=== PATIENT | male | born 1950 | race Two or more races ===

== ENCOUNTER 2020-03-28 09:42 | Outpatient (CLI) | payer MEDICARE, OTHER ==
[~2020-03-28 09:42] MED LIST: METF-440 PO; METO25TA4 PO; SIME125C81 PO
[2020-03-28 12:48] LABS: BASOPHILS # (AUTO) 0.1 /CMM (0.0-0.2); BASOPHILS % (AUTO) 1.3 % (0.0-2.0); EOSINOPHILS % (AUTO) 8.5 % (0.0-6.0); HEMATOCRIT 46 % (39-51); HEMOGLOBIN 15.4 g/dL (13.5-17.5); LYMPHOCYTES # (AUTO) 1.8 /CMM (0.8-4.8); LYMPHOCYTES % (AUTO) 21.9 % (20.0-44.0); MEAN CORPUSCULAR HGB CONC 33 g/dl (31.0-36.0); MEAN CORPUSCULAR VOLUME 92 fL (80-96); MONOCYTES # (AUTO) 0.8 /CMM (0.1-1.30); MONOCYTES % (AUTO) 9.9 % (2.0-12.0); NEUTROPHILS # (AUTO) 4.9 /CMM (1.8-8.9); NEUTROPHILS % (AUTO) 58.4 % (43.0-81.0); PLATELET COUNT (AUTO) 259 /CMM (150-450); RED BLOOD CELL COUNT(AUTO) 5.03 MIL/uL (4.5-6.0); WHITE BLOOD COUNT (AUTO) 8.4 K/uL (4.3-11.0)
[2020-03-28 13:19] LABS: ALBUMIN 3.5 g/dL (3.4-5.0); CALCIUM, SERUM 9.3 mg/dL (8.5-10.1); CREATININE 2.1 mg/dL (0.6-1.3); MAGNESIUM 2.1 mg/dL (1.8-2.4); PHOSPHORUS 3.2 mg/dL (2.5-4.9); POTASSIUM 4.5 mmol/L (3.5-5.1); TOTAL PROTEIN, SERUM 8.1 g/dL (6.4-8.2)
[2020-03-28 13:22] LABS: URIC ACID 7.4 mg/dL (2.6-7.2)
[2020-03-28 13:35] LABS: BILIRUBIN,TOTAL 0.3 mg/dL (0.2-1.0)
[2020-03-29 08:08] LABS: FOLIC ACID 12.1 ng/mL (>3.0)
== END 2020-03-28 23:59 | disposition home or self-care (01) ==
LOC: MSC 09:42
PROVIDERS: ATTEND Internal Medicine
DX: H04.203 Unspecified epiphora, bilateral (principal); E11.22 Type 2 diabetes mellitus with diabetic chronic kidney disease; I12.9 Hypertensive chronic kidney disease with stage 1 through stage 4 chronic kidney disease, or unspecified chronic kidney disease; N18.9 Chronic kidney disease, unspecified; Z79.84 Long term (current) use of oral hypoglycemic drugs; I25.10 Atherosclerotic heart disease of native coronary artery without angina pectoris; M10.9 Gout, unspecified; R05 Cough
CPT/HCPCS: 36415; 80053; 82306; 82607; 82746; 83036; 83735; 84100; 84550; 85025; 85652; 86140; G0463

== ENCOUNTER 2020-11-15 10:59 | Outpatient (CLI) | payer OTHER | END 2020-11-15 23:59 | disposition home or self-care (01) | LOC: MSC 10:59 | PROVIDERS: ATTEND Internal Medicine | DX: E11.22 Type 2 diabetes mellitus with diabetic chronic kidney disease (principal); I12.9 Hypertensive chronic kidney disease with stage 1 through stage 4 chronic kidney disease, or unspecified chronic kidney disease; N18.9 Chronic kidney disease, unspecified; Z79.4 Long term (current) use of insulin; I25.10 Atherosclerotic heart disease of native coronary artery without angina pectoris; Z98.61 Coronary angioplasty status; M10.9 Gout, unspecified; R05 Cough; Z79.82 Long term (current) use of aspirin; Z79.899 Other long term (current) drug therapy ==

== ENCOUNTER 2021-01-01 08:49 | Outpatient (CLI) | payer OTHER | END 2021-01-01 23:59 | disposition home or self-care (01) | LOC: MSC 08:49 | PROVIDERS: ATTEND Internal Medicine | DX: M25.512 Pain in left shoulder (principal); E11.22 Type 2 diabetes mellitus with diabetic chronic kidney disease; I12.9 Hypertensive chronic kidney disease with stage 1 through stage 4 chronic kidney disease, or unspecified chronic kidney disease; N18.9 Chronic kidney disease, unspecified; Z79.4 Long term (current) use of insulin; I25.10 Atherosclerotic heart disease of native coronary artery without angina pectoris; Z95.5 Presence of coronary angioplasty implant and graft; M10.9 Gout, unspecified; R05 Cough; H04.203 Unspecified epiphora, bilateral; Z79.82 Long term (current) use of aspirin; Z79.899 Other long term (current) drug therapy ==